=== PATIENT | male | born 1975 | race Caucasian/White ===

== ENCOUNTER 2018-01-15 09:43 | Emergency (ER) | payer OTHER ==
[2018-01-15 09:50] VITALS: RESP 18
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
[2018-01-15 10:57] LABS: Basophils # (A) 0.1 k/uL (0-0.2); Basophils % (A) 1 %; Eosinophils # (A) 0.2 k/uL (0-0.7); Eosinophils % (A) 2 %; HCT 49.7 % (39.0-53.0); HGB 16.3 gm/dL (13.0-17.5); Lymphocytes # (A) 2.2 k/uL (1.0-4.8); Lymphocytes % (A) 22 %; MCH 30.6 pg (25.0-35.0); MCHC 32.9 g/dL (31.0-37.0); Mean Platelet Volume 6.4; Monocytes # (A) 0.5 k/uL (0-1.0); Monocytes % (A) 4 %; Neutrophils # (A) 7.1 k/uL (1.3-7.7); Neutrophils % (A) 70 %; Platelet Count 424 k/uL (150-450); RBC 5.34 m/uL (4.30-5.90); WBC 10.2 k/uL (3.8-10.6)
[2018-01-15 11:07] LABS: ALT 25 U/L (21-72); AST 19 U/L (17-59); Albumin 4.7 g/dL (3.5-5.0); Alkaline Phosphatase 59 U/L (38-126); Anion Gap 10 mmol/L; Blood Urea Nitrogen 16 mg/dL (9-20); Calcium 10.1 mg/dL (8.4-10.2); Carbon Dioxide 24 mmol/L (22-30); Chloride 106 mmol/L (98-107); Glucose 93 mg/dL (74-99); Lithium 0.5 mmol/L; Magnesium 2.1 mg/dL (1.6-2.3); Potassium 5.5 mmol/L (3.5-5.1); Sodium 140 mmol/L (137-145)
--- NOTE | 2018-01-15 11:23 | CT ---
EXAMINATION TYPE: CT brain cspine wo con DATE OF EXAM: 01/15/2018 COMPARISON: NONE HISTORY: Fall injury with headache and neck pain. CT DLP: Routine 60 mGycm. Automated Exposure Control for Dose Reduction was Utilized. TECHNIQUE: CT scan of the head and cervical spine are performed without contrast. FINDINGS: There is no acute intracranial hemorrhage, mass effect, or midline shift identified. The ventricles and sulci are within normal limits in size. The globes are intact and the visualized sin uses are clear. The calvarium is intact. Cervical spine is visualized in its entirety from C1 through upper thoracic levels and demonstrates s atisfactory alignment without evidence of acute fracture or dislocation. Prevertebral soft tissue ap pears within normal limits. The C1-C2 articulation is within normal limits on the coronal images. T here is mild to moderate disc space narrowing C6-C7 level otherwise vertebral body heights and disc s pace heights are fairly well-maintained. Small posterior spur disc complex is seen at this level on s agittal images. Thyroid gland is felt within normal limits. There is advanced emphysematous change in the visualized lung apices. IMPRESSION: 1. There is no acute fracture or dislocation evident in the cervical spine. Incidental advanced emphy sematous change in visualized lung apices. 2. No acute intracranial hemorrhage, mass effect, or midline shift is seen.
[2018-01-15 12:42] VITALS: BP 129/80; PULSE 79; TEMP 98
== END 2018-01-15 12:35 | disposition home or self-care (01) ==
LOC: EC 09:43
DX: M54.12 Radiculopathy, cervical region (principal); H53.8 Other visual disturbances; F31.9 Bipolar disorder, unspecified; F41.9 Anxiety disorder, unspecified; F17.200 Nicotine dependence, unspecified, uncomplicated; Z79.899 Other long term (current) drug therapy
CPT/HCPCS: 36415; 70450; 72125; 80053; 80178; 83735; 85025; 99284

== ENCOUNTER → 2018-01-21 | Outpatient (CLI) | payer OTHER ==
--- NOTE | 2018-01-21 16:23 | US ---
EXAMINATION TYPE: US kidneys/renal and bladder DATE OF EXAM: 01/21/2018 COMPARISON: NONE CLINICAL HISTORY: 42-year-old male R31.9 Hematuria. TECHNIQUE: Multiple sonographic images of the kidneys and bladder are obtained. FINDINGS: EXAM MEASUREMENTS: Right Kidney: 9.5 x 4.3 x 5.1 cm Left Kidney: 11.0 x 5.3 x 4.8 cm Right Kidney: Central cyst measuring 1.7 x 1.8 x 1.8cm contains a thin internal septation. No hydrone phrosis. Left Kidney: No hydronephrosis. Bladder: Mild circumferential wall thickening at 5 mm. IMPRESSION: 1. No hydronephrosis. 2. Minimally complex 1.8 cm cyst in the central right kidney. Suspect a benign, Bosniak category [address] A 6-12 month precautionary follow-up ultrasound can be performed. 3. Mild circumferential bladder wall thickening could represent chronic bladder wall hypertrophy. Cor relate to exclude cystitis.
--- NOTE | 2018-01-21 16:30 | US ---
EXAMINATION TYPE: US thyroid st tissue head/neck DATE OF EXAM: 01/21/2018 COMPARISON: NONE CLINICAL HISTORY: 42-year-old male e21.3 parathyroid disease. TECHNIQUE: Multiple sonographic images of the thyroid gland are obtained. FINDINGS: GLAND SIZE: Right Lobe: 5.3 x 1.3 x 2.3 cm Overall Parenchyma: heterogenous Left Lobe: 6.0 x 1.3 x 1.3 cm Overall Parenchyma: heterogeneous Isthmus Thickness: 0.2 cm NODULES RIGHT: # of nodules measured on right: 0 LEFT: # of nodules measured on left: 0 ISTHMUS: # of nodules measured in the isthmus: 0 Bilateral neck scanned, no evidence of lymphadenopathy. No evident mass in parathyroid area. IMPRESSION: 1. Mild thyromegaly with measurements as above. 2. No discrete nodule or parathyroid mass identified.
--- NOTE | 2018-01-24 22:00 | MR ---
EXAMINATION TYPE: MR cervical spine wo con DATE OF EXAM: 01/21/2018 COMPARISON: None HISTORY: 42-year-old male, pain and numbness in right arm. TECHNIQUE: Multiplanar, multisequence images of the cervical spine were acquired. FINDINGS: The craniocervical junction abnormality, predental space widening, or prevertebral soft tissue swelli ng. Vertebral mild intervertebral disc desiccation throughout. There is also mild disc interspace narrowi ng at C6-C7. Mild disc bulging is present at both C5-C6 and C6-C7 and additional ligamentum flavum thickening is p resent at C6-C7. Scattered mild facet arthropathy. Alignment is maintained. No prevertebral or paravertebral soft tissue abnormality seen. A focal lesion within the C5 vertebral body shows stippled appearance on axial series most compatible with a hemangioma. No suspicious bone marrow replacement. At C2-C3, no spinal canal or foraminal stenosis. There is mild facet arthropathy. At C3-C4, mild facet arthropathy without canal or foraminal stenosis. At C4-C5, there is facet arthropathy and minimal bulging disc without canal or foraminal stenosis. At C5-C6, minimal posterior bulging disc with facet arthropathy. No significant canal or foraminal st enosis. At C6-C7, broad-based discussed by complex with uncovertebral joint degenerative change on the left a nd mild facet arthropathy. Changes mildly narrow the left-sided neuroforamen. Additional ligamentum f lavum thickening. There is mild ventral and dorsal impression on the thecal sac without significant c anal stenosis. At C7-T1, no spinal canal or foraminal stenosis. IMPRESSION: Mild spondylotic change, particularly at the C6-C7. Changes result in mild narrowing of the left-side d neuroforamen at this level and minimal impression on to both the dorsal and ventral thecal sac but no significant spinal canal stenosis.
== END | disposition home or self-care (01) ==
LOC: RADMRIMAIN 10:16
PROVIDERS: ATTEND Family Medicine
DX: M99.71 Connective tissue and disc stenosis of intervertebral foramina of cervical region (principal); M47.22 Other spondylosis with radiculopathy, cervical region; E01.0 Iodine-deficiency related diffuse (endemic) goiter; N32.89 Other specified disorders of bladder; N28.1 Cyst of kidney, acquired; E21.3 Hyperparathyroidism, unspecified
CPT/HCPCS: 72141; 76536; 76770

== ENCOUNTER 2018-04-12 12:49 | Emergency (ER) | payer OTHER ==
[2018-04-12 12:59] VITALS: RESP 16
--- NOTE | 2018-04-12 14:06 | XR ---
EXAMINATION TYPE: XR hand complete LT DATE OF EXAM: 04/12/2018 CLINICAL HISTORY: Pain and swelling after fall injury today. TECHNIQUE: Frontal, lateral and oblique images of the left hand are obtained. COMPARISON: None. FINDINGS: There is no acute fracture/dislocation evident in the left hand. The joint spaces in the l eft hand appear within normal limits. Metallic ring overlies midshaft fourth proximal phalanx. The o verlying soft tissue appears unremarkable. IMPRESSION: There is no acute fracture or dislocation in the left hand.
--- NOTE | 2018-04-12 14:07 | XR ---
EXAMINATION TYPE: XR knee complete LT DATE OF EXAM: 04/12/2018 COMPARISON: NONE HISTORY: 43-year-old male with pain and swelling after fall today TECHNIQUE: 3 views FINDINGS: No acute fracture, subluxation, or dislocation. Extensor mechanism appears intact. No significant taty nt effusion. Mild anterior soft tissue swelling. IMPRESSION: No acute osseous abnormality seen.
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
[2018-04-12] MEDS ORDERED: ACETAMINOPHEN TAB 325 MG TAB PO STA (14:48)
[2018-04-12 15:14] VITALS: BP 116/80; PULSE 80; TEMP 98.2
== END 2018-04-12 15:13 | disposition home or self-care (01) ==
LOC: EC 12:49
DX: M79.642 Pain in left hand (principal); M25.562 Pain in left knee; F31.9 Bipolar disorder, unspecified; F41.9 Anxiety disorder, unspecified; F17.200 Nicotine dependence, unspecified, uncomplicated; Z79.899 Other long term (current) drug therapy; W01.0XXA Fall on same level from slipping, tripping and stumbling without subsequent striking against object, initial encounter; W22.8XXA Striking against or struck by other objects, initial encounter
CPT/HCPCS: 99283

== ENCOUNTER 2018-08-26 18:43 | Emergency (ER) | payer OTHER ==
[2018-08-26 19:16] VITALS: RESP 16; TEMP 98.3
[2018-08-26] MEDS ORDERED: KETOROLAC 30 MG/ML 1 ML VIAL IM STA (19:29)
[2018-08-26] MEDS ORDERED: MORPHINE SULFATE 4 MG/ML SYRINGE IM STA (19:29)
--- NOTE | 2018-08-26 19:36 | ED ---
Chest Pain HPI - General Chief Complaint: Chest Pain Stated Complaint: Chest pain Time Seen by Provider: 08/26/18 19:14 Source: patient, RN notes reviewed, old records reviewed Mode of arrival: ambulatory Limitations: no limitations - History of Present Illness Initial Comments: Patient is a 43-year-old male who presents emergency Department stay for ev aluation for right sided musculoskeletal chest pain. He reports symptoms started after he had an injury on Thursday. He was seen at [facility] that time. He was started on Robaxin and naproxen With sinus a muscle strain. He reports that history of pneumothorax the past. He states he doesn't feel extremely short of breath. He denies any lightheaded or dizziness. Patient reports pain is worse with certain movements. Patient reports the injury was caused after he was trying to lift something over a 5 story railing. Patient reports that he simply pinned between the railing while holding onto heavy object. Trying to throw over. Patient states that he has pain in the right axilla and ribs. - Related Data Home Medications Medication Instructions Recorded Confirmed Methocarbamol [Robaxin] 1,000 mg PO TID PRN 08/26/18 08/26/18 Naproxen 500 mg PO BID 08/26/18 08/26/18 Previous Rx's Medication Instructions Recorded Lidocaine 5% Patch [Lidoderm 5% 1 patch TOPICAL DAILY #10 patch 08/26/18 Patch] methylPREDNISolone Dose Pack 4 mg PO DIRECTED #21 package 08/26/18 [Medrol Dose Pack] Allergies Allergy/AdvReac Type Severity Reaction Status Date / Time No Known Allergies Allergy Verified 08/26/18 19:48 Review of Systems ROS Statement: Those systems with pertinent positive or pertinent negative responses have been documented in the HPI. ROS Other: All systems not noted in ROS Statement are negative. Past Medical History Past Medical History: Pneumonia History of Any Multi-Drug Resistant Organisms: None Reported Past Surgical History: No Surgical Hx Reported Past Psychological History: Anxiety, Bipolar, Depression Smoking Status: Current every day smoker Past Alcohol Use History: Rare Past Drug Use History: None Reported General Exam - General Exam Comments Initial Comments: 43-year-old male. Alert and oriented. No distress. Limitations: no limitations General appearance: alert, in no apparent distress Head exam: Present: atraumatic, normocephalic, normal inspection Eye exam: Present: normal appearance, PERRL, EOMI. Absent: scleral icterus, conjunctival injection, periorbital swelling ENT exam: Present: normal exam, mucous membranes moist Neck exam: Present: normal inspection. Absent: tenderness, meningismus, lymphadenopathy Respiratory exam: Present: normal lung sounds bilaterally, other (Chest tenderness over the right-sided chest wall.). Absent: respiratory distress, wheezes, rales, rhonchi, stridor Cardiovascular Exam: Present: regular rate, normal rhythm, normal heart sounds. Absent: systolic murmur, diastolic murmur, rubs, gallop, clicks GI/Abdominal exam: Present: soft, normal bowel sounds. Absent: distended, tenderness, guarding, rebound, rigid Extremities exam: Present: normal inspection, full ROM, normal capillary refill. Absent: tenderness, pedal edema, joint swelling, calf tenderness Back exam: Present: normal inspection Neurological exam: Present: alert, oriented X3, CN II-XII intact Psychiatric exam: Present: normal affect, normal mood Skin exam: Present: warm, dry, intact, normal color. Absent: rash Course Vital Signs 08/26/18 19:13 Temperature 98.3 F Pulse Rate 71 Respiratory 16 Rate Blood Pressure 131/51 O2 Sat by Pulse 98 Oximetry [facility] Patient is a 43-year-old male presents for his pharmacy for evaluation for right-sided chest wall pain. Symptoms started after he had an injury on Thursday. Was seen at [facility] and sent here for further evaluation. Patient's pain is extremely muscular skeletal. No dizziness ahead shortness of breath. Does report as well as palpation. X-rays repeated today should no acute fracture. No pneumothorax. There is no significant bruising on his exam. I discussed discharging the Patient with lidocaine patches and continuing muscle relaxers and anti-inflammatory medicine. All questions answered and return parameters were discussed. Disposition Clinical Impression: Chest wall contusion Disposition: HOME SELF-CARE Condition: Good Instructions (If sedation given, give patient instructions): Costochondritis (ED) Additional Instructions: Patient advised to follow-up with her primary care physician. Return to emergency department if any alarming signs or symptoms occur. Prescriptions: Lidocaine 5% Patch [Lidoderm 5% Patch] 1 patch TOPICAL DAILY #10 patch methylPREDNISolone Dose Pack [Medrol Dose Pack] 4 mg PO DIRECTED #21 package Is patient prescribed a controlled substance at d/c from ED?: No Referrals: None,Stated [REFERRING] - 1-2 days Danii Lassiter MD [Primary Care Provider] - 1-2 days Time of Disposition: 21:38
--- NOTE | 2018-08-26 19:59 | XR ---
EXAMINATION TYPE: XR chest 2V DATE OF EXAM: 08/26/2018 COMPARISON: NONE HISTORY: Short of breath TECHNIQUE: Frontal and lateral views of the chest are obtained. FINDINGS: Heart and mediastinum are normal. There are some emphysematous changes in the upper lobes. There are no hilar masses. Bony thorax is intact. There is small calcified granuloma right lower lob e. IMPRESSION: Emphysema. No acute lung disease. Normal heart.
--- NOTE | 2018-08-26 21:11 | XR ---
EXAMINATION TYPE: XR ribs RT DATE OF EXAM: 08/26/2018 COMPARISON: NONE HISTORY: Right rib pain TECHNIQUE: 4 views FINDINGS: I see no pleural effusion or pneumothorax. There are emphysematous changes in the right upp er lobe. I see no rib fracture. IMPRESSION: No rib fracture seen.
[2018-08-26] MEDS ORDERED: LIDOCAINE 5% PATCH TOPICAL SCH (21:30)
[2018-08-26] MEDS ORDERED: ACET/COD 300 MG/30 MG STARTER PACK 6 TAB BTL PO STA (21:39)
[2018-08-26 22:07] VITALS: BP 121/69; PULSE 86
== END 2018-08-26 22:05 | disposition home or self-care (01) ==
LOC: EC 18:43
DX: S20.211A Contusion of right front wall of thorax, initial encounter (principal); J43.9 Emphysema, unspecified; F17.200 Nicotine dependence, unspecified, uncomplicated; Z79.1 Long term (current) use of non-steroidal anti-inflammatories (NSAID); X58.XXXA Exposure to other specified factors, initial encounter
CPT/HCPCS: 71100; 71046; 99285; 96372 ×2; J2270; J1885

== ENCOUNTER 2018-11-29 23:02 | Emergency (ER) | payer OTHER ==
[2018-11-29] MEDS ORDERED: SODIUM CHLORIDE 0.9% 500 ML 500 ML IV STA (23:51)
[2018-11-29] MEDS ORDERED: KETOROLAC 30 MG/ML 1 ML VIAL IVP STA (23:52)
[2018-11-30 00:12] LABS: Basophils # (A) 0.1 k/uL (0-0.2); Basophils % (A) 1 %; Eosinophils # (A) 0.2 k/uL (0-0.7); Eosinophils % (A) 2 %; HCT 40.6 % (39.0-53.0); HGB 13.7 gm/dL (13.0-17.5); Lymphocytes # (A) 3.5 k/uL (1.0-4.8); Lymphocytes % (A) 46 %; MCH 30.8 pg (25.0-35.0); MCHC 33.7 g/dL (31.0-37.0); MCV 91.5 fL (80.0-100.0); Mean Platelet Volume 6.4; Monocytes # (A) 0.5 k/uL (0-1.0); Monocytes % (A) 7 %; Neutrophils # (A) 3.1 k/uL (1.3-7.7); Neutrophils % (A) 42 %; Platelet Count 349 k/uL (150-450); RBC 4.44 m/uL (4.30-5.90); RDW 12.7 % (11.5-15.5); WBC 7.5 k/uL (3.8-10.6)
[2018-11-30 00:26] LABS: ALT 10 U/L (21-72); AST 18 U/L (17-59); African American GFR (CKD) >90 (>60 ml/min/1.73 sqM); Alkaline Phosphatase 51 U/L (38-126); Amylase 57 U/L (30-110); Anion Gap 9 mmol/L; Blood Urea Nitrogen 10 mg/dL (9-20); Calcium 9.6 mg/dL (8.4-10.2); Carbon Dioxide 24 mmol/L (22-30); Chloride 105 mmol/L (98-107); Glucose 93 mg/dL (74-99); Sodium 138 mmol/L (137-145); Total Bilirubin 0.7 mg/dL (0.2-1.3); Total Protein 6.7 g/dL (6.3-8.2)
[2018-11-30 00:33] LABS: Appearance,Urine Clear (Clear); Bilirubin,Urine Negative (Negative); Blood,Urine Small (Negative); Color,Urine Yellow; Glucose,Urine (UA) Negative (Negative); Ketones,Urine Negative (Negative); Leukocyte Esterase,Urine Negative (Negative); Mucus,Urine Moderate /hpf; Nitrite,Urine Negative (Negative); PH, Urine 5.5 (5.0-8.0); Protein,Urine Negative (Negative); RBC,Urine 3 /hpf (0-5); Specific Gravity,Urine 1.013 (1.001-1.035); Urobilinogen,Urine <2.0 mg/dL (<2.0); WBC,Urine 1 /hpf (0-5)
--- NOTE | 2018-11-30 01:01 | CT ---
EXAM: CT Abdomen and Pelvis Without Intravenous Contrast CLINICAL HISTORY: Stone TECHNIQUE: Axial computed tomography images of the abdomen and pelvis without intravenous contrast. CTDI is 0.085, 0.085, 5.6 mGy and DLP is 322.1 mGy- cm. This CT exam was performed using one or more of the following dose reduction techniques: automated exposure control, adjustment of the mA and/or kV according to patient size, and/or use of iterative reconstruction technique. COMPARISON: No relevant prior studies available. FINDINGS: Lung bases: Centrilobular emphysema with dependent atelectasis. Heart: Trace pericardial effusion. ABDOMEN: Liver: Unremarkable. Gallbladder and bile ducts: Unremarkable. Pancreas: Unremarkable. Spleen: Unremarkable. Adrenals: Unremarkable. Kidneys and ureters: Probable cyst within the right kidney. Stomach and bowel: Unremarkable. PELVIS: Appendix: Appendix is unremarkable. Bladder: Unremarkable. Reproductive: Unremarkable as visualized. ABDOMEN and PELVIS: Intraperitoneal space: Unremarkable. Bones/joints: No acute fracture. No dislocation. Soft tissues: Unremarkable. Vasculature: Unremarkable. No abdominal aortic aneurysm. Lymph nodes: Unremarkable. IMPRESSION: No acute findings.
--- NOTE | 2018-11-30 01:14 | ED ---
Abdominal Pain HPI - General Chief Complaint: Abdominal Pain Stated Complaint: Kidney stones Time Seen by Provider: 11/29/18 23:51 Source: patient Mode of arrival: ambulatory Limitations: no limitations - History of Present Illness Initial Comments: 43-year-old male history of nephrolithiasis presenting today for chief complaint of left-sided flank pain that radiates towards the abdomen. Patient states that he believes he has a kidney stone. He states he has sharp pain that comes and goes April 15 had a stone in the past. Patient states his urine has been a little red tinged. He states he also has had some mild dysuria. Patient denies penile discharge. Denies any fever or chills night sweats or flu like symptoms. Patient denies chest pain shortness of breath. Patient describes the pain as sharp shooting when it occurs. Fluctuating in intensity. Remaining review of systems negative upon arrival patient appears well no signs of acute distress. - Related Data Home Medications Medication Instructions Recorded Confirmed Methocarbamol [Robaxin] 1,000 mg PO TID PRN 08/26/18 11/29/18 Diazepam [Valium] 5 mg PO BID 11/29/18 11/29/18 Allergies Allergy/AdvReac Type Severity Reaction Status Date / Time No Known Allergies Allergy Verified 11/29/18 23:45 Review of Systems ROS Statement: Those systems with pertinent positive or pertinent negative responses have been documented in the HPI. ROS Other: All systems not noted in ROS Statement are negative. Past Medical History Past Medical History: Pneumonia Additional Past Medical History / Comment(s): kidney stones History of Any Multi-Drug Resistant Organisms: None Reported Past Surgical History: Orthopedic Surgery Additional Past Surgical History / Comment(s): R thumb Past Psychological History: Anxiety, Bipolar, Depression Smoking Status: Current every day smoker Past Alcohol Use History: Rare Past Drug Use History: None Reported General Exam - General Exam Comments Initial Comments: General: The patient is awake and alert, in no distress, and does not appear acutely ill. Eye: Pupils are equal, round and reactive to light, extra-ocular movements are intact. No nystagmus. There is normal conjunctiva bilaterally. No signs of icterus. Ears, nose, mouth and throat: There are moist mucous membranes and no oral lesions. Neck: The neck is supple, there is no tenderness or JVD. Cardiovascular: There is a regular rate and rhythm. No murmur, rub or gallop is appreciated. Respiratory: Lungs are clear to auscultation, respirations are non-labored, breath sounds are equal. No wheezes, stridor, rales, or rhonchi. Gastrointestinal: Soft, non-distended, non-tender abdomen without masses or organomegaly noted. There is no rebound or guarding present. No CVA tenderness. Bowel sounds are unremarkable. Musculoskeletal: Normal ROM, no tenderness. Strength 5/5. Sensation intact. Pulses equal bilaterally 2+. Neurological: A&O x 3. CN II-XII intact, There are no obvious motor or sensory deficits. Coordination appears grossly intact. Speech is normal. Skin: Skin is warm and dry and no rashes or lesions are noted. Psychiatric: Cooperative, appropriate mood & affect, normal judgment. Limitations: no limitations Course Vital Signs 11/29/18 11/29/18 11/30/18 23:21 23:56 01:28 Temperature 97.4 F L 97.6 F Pulse Rate 81 84 66 Respiratory 20 18 16 Rate Blood Pressure 118/81 111/72 114/66 O2 Sat by Pulse 97 95 99 Oximetry Medical Decision Making - Medical Decision Making 43-year-old male presenting for left flank pain radiating towards the abdomen. Patient appears well and nontoxic. Vital signs within acceptable limits. Patient is afebrile. Abdominal exam benign. Patient's history of nephro lithiasis had had an episode of dysuria. There is hematuria noted on urinalysis. CT without contrast of the abdomen and pelvis revealed no evidence of stone. There is possibility the stone is very passed. Patient has no current symptoms after toradol. Patient appears well besides acute distress. Laboratory studies are unremarkable. At this time feel patient is stable for discharge with outpatient primary care follow-up. Return parameters were discussed at length patient states he lives [place] the [place] from the hospital and will return if symptoms change or worsen. Patient was discharged appearing well - Lab Data Result diagrams: 11/29/18 23:45 11/29/18 23:45 Lab Results 11/29/18 11/29/18 11/29/18 Range/Units 23:45 23:45 23:45 WBC 7.5 (3.8-10.6) k/uL RBC 4.44 (4.30-5.90) m/uL Hgb 13.7 (13.0-17.5) gm/dL Hct 40.6 (39.0-53.0) % MCV 91.5 (80.0-100.0) fL MCH 30.8 (25.0-35.0) pg MCHC 33.7 (31.0-37.0) g/dL RDW 12.7 (11.5-15.5) % Plt Count 349 (150-450) k/uL Neutrophils % 42 % Lymphocytes % 46 % Monocytes % 7 % Eosinophils % 2 % Basophils % 1 % Neutrophils # 3.1 (1.3-7.7) k/uL Lymphocytes # 3.5 (1.0-4.8) k/uL Monocytes # 0.5 (0-1.0) k/uL Eosinophils # 0.2 (0-0.7) k/uL Basophils # 0.1 (0-0.2) k/uL Sodium 138 (137-145) mmol/L Potassium 4.0 (3.5-5.1) mmol/L Chloride 105 (98-107) mmol/L Carbon Dioxide 24 (22-30) mmol/L Anion Gap 9 mmol/L BUN 10 (9-20) mg/dL Creatinine 1.08 (0.66-1.25) mg/dL Est GFR (CKD-EPI)AfAm >90 (>60 ml/min/1.73 sqM) Est GFR (CKD-EPI)NonAf 83 (>60 ml/min/1.73 sqM) Glucose 93 (74-99) mg/dL Calcium 9.6 (8.4-10.2) mg/dL Total Bilirubin 0.7 (0.2-1.3) mg/dL AST 18 (17-59) U/L ALT 10 L (21-72) U/L Alkaline Phosphatase 51 (38-126) U/L Total Protein 6.7 (6.3-8.2) g/dL Albumin 4.0 (3.5-5.0) g/dL Amylase 57 (30-110) U/L Lipase 109 (23-300) U/L Urine Color Yellow Urine Appearance Clear (Clear) Urine pH 5.5 (5.0-8.0) Ur Specific [place] 1.013 (1.001-1.035) Urine Protein Negative (Negative) Urine Glucose (UA) Negative (Negative) Urine Ketones Negative (Negative) Urine Blood Small H (Negative) Urine Nitrite Negative (Negative) Urine Bilirubin Negative (Negative) Urine Urobilinogen <2.0 (<2.0) mg/dL Ur Leukocyte Esterase Negative (Negative) Urine RBC 3 (0-5) /hpf Urine WBC 1 (0-5) /hpf Urine Mucus Moderate H (None) /hpf Disposition Clinical Impression: Abdominal pain, Hematuria Disposition: HOME SELF-CARE Condition: Good Instructions (If sedation given, give patient instructions): Abdominal Pain (ED) Additional Instructions: Please use medication as discussed. Please follow-up with family doctor in the next 2 days Please return to emergency room if the symptoms increase or worsen or for any other concerns. Is patient prescribed a controlled substance at d/c from ED?: No Referrals: Danii Lassiter MD [Primary Care Provider] - 1-2 days Time of Disposition: 01:14
[2018-11-30 01:30] VITALS: BP 114/66; PULSE 66; RESP 16; TEMP 97.6
== END 2018-11-30 01:32 | disposition home or self-care (01) ==
LOC: EC 23:02
DX: R10.9 Unspecified abdominal pain (principal); R31.9 Hematuria, unspecified; Z87.442 Personal history of urinary calculi; R30.0 Dysuria; F41.9 Anxiety disorder, unspecified; F17.200 Nicotine dependence, unspecified, uncomplicated; Z79.899 Other long term (current) drug therapy
CPT/HCPCS: 36415; 80053; 82150; 83690; 85025; 81001; 74176; 99284; 96374; 96361 ×2; J1885

== ENCOUNTER 2018-11-30 22:00 | Emergency (ER) | payer OTHER ==
[2018-11-30 22:03] VITALS: BP 106/68; PULSE 64; RESP 18; TEMP 97.8
[2018-11-30] MEDS ORDERED: SODIUM CHLORIDE 0.9% 1,000 ML IV STA (23:01)
[2018-11-30] MEDS ORDERED: KETOROLAC 30 MG/ML 1 ML VIAL IVP STA (23:01)
--- NOTE | 2018-11-30 23:04 | ED ---
General Adult HPI - General Chief complaint: Recheck/Abnormal Lab/Rx Stated complaint: kidney stones Time Seen by Provider: 11/30/18 22:07 Source: patient, RN notes reviewed Mode of arrival: ambulatory Limitations: no limitations - History of Present Illness Initial comments: 43-year-old male with a past medical history of kidney stones, pneumonia prese nts to the emergency department for left flank and abdominal pain. Patient states this started yesterday. States he was seen in the emergency department and diagnosed with likely passed kidney stone. States that he did feel better after discharge but when he went home he started having this pain again. States it was painful at work. Patient denies any alleviating or aggravating factors. Denies any fevers or chills. States it feels like a kidney stone.Patient has no other complaints at this time including shortness of breath, chest pain, nausea or vomiting, headache, or visual changes. - Related Data Home Medications Medication Instructions Recorded Confirmed Methocarbamol [Robaxin] 1,000 mg PO TID PRN 08/26/18 11/30/18 Diazepam [Valium] 5 mg PO BID 11/29/18 11/30/18 Allergies Allergy/AdvReac Type Severity Reaction Status Date / Time No Known Allergies Allergy Verified 11/30/18 22:17 Review of Systems ROS Statement: Those systems with pertinent positive or pertinent negative responses have been documented in the HPI. ROS Other: All systems not noted in ROS Statement are negative. Past Medical History Past Medical History: Pneumonia Additional Past Medical History / Comment(s): kidney stones History of Any Multi-Drug Resistant Organisms: None Reported Past Surgical History: Orthopedic Surgery Additional Past Surgical History / Comment(s): R thumb Past Psychological History: Anxiety, Bipolar, Depression Smoking Status: Current every day smoker Past Alcohol Use History: Rare Past Drug Use History: None Reported General Exam Limitations: no limitations General appearance: alert, in no apparent distress Head exam: Present: atraumatic, normocephalic, normal inspection Eye exam: Present: normal appearance, PERRL, EOMI. Absent: scleral icterus, conjunctival injection, periorbital swelling ENT exam: Present: normal exam, mucous membranes moist Neck exam: Present: normal inspection, full ROM. Absent: tenderness, meningi smus, lymphadenopathy Respiratory exam: Present: normal lung sounds bilaterally. Absent: respiratory distress, wheezes, rales, rhonchi, stridor Cardiovascular Exam: Present: regular rate, normal rhythm, normal heart sounds. Absent: systolic murmur, diastolic murmur, rubs, gallop, clicks Back exam: Present: CVA tenderness (L). Absent: CVA tenderness (R) Course Vital Signs 11/30/18 22:01 Temperature 97.8 F Pulse Rate 64 Respiratory 18 Rate Blood Pressure 106/68 O2 Sat by Pulse 100 Oximetry Medical Decision Making - Medical Decision Making 43-year-old male presents to the emergency department for left flank and abdominal pain 2 days. Patient was seen here yesterday for similar complaint. States he felt better and worsened again. Vitals are stable. Patient does have left CVA tenderness of mild left-sided abdominal tenderness. CBC and CMP unremarkable. Patient does have trace blood noted in the urine. CT did not show evidence of kidney stone but it was thought that he likely passed a kidney stone. Patient was given Toradol and morphine today with significant improvement in symptoms. He is tolerating by mouth challenge. This is likely renal colic. At this time patient will follow up outpatient and will be given urology referral and pain medication. He will return here if he has any worsening symptoms. - Lab Data Result diagrams: 11/30/18 23:05 11/30/18 23:05 Lab Results 11/30/18 11/30/18 11/30/18 Range/Units 23:05 23:05 23:05 WBC 7.3 (3.8-10.6) k/uL RBC 4.67 (4.30-5.90) m/uL Hgb 14.6 (13.0-17.5) gm/dL Hct 43.3 (39.0-53.0) % MCV 92.7 (80.0-100.0) fL MCH 31.2 (25.0-35.0) pg MCHC 33.6 (31.0-37.0) g/dL RDW 13.9 (11.5-15.5) % Plt Count 368 (150-450) k/uL Neutrophils % 41 % Lymphocytes % 48 % Monocytes % 6 % Eosinophils % 2 % Basophils % 1 % Neutrophils # 3.0 (1.3-7.7) k/uL Lymphocytes # 3.5 (1.0-4.8) k/uL Monocytes # 0.4 (0-1.0) k/uL Eosinophils # 0.1 (0-0.7) k/uL Basophils # 0.1 (0-0.2) k/uL Sodium 141 (137-145) mmol/L Potassium 3.8 (3.5-5.1) mmol/L Chloride 107 (98-107) mmol/L Carbon Dioxide 25 (22-30) mmol/L Anion Gap 9 mmol/L BUN 13 (9-20) mg/dL Creatinine 0.88 (0.66-1.25) mg/dL Est GFR (CKD-EPI)AfAm >90 (>60 ml/min/1.73 sqM) Est GFR (CKD-EPI)NonAf >90 (>60 ml/min/1.73 sqM) Glucose 71 L (74-99) mg/dL Calcium 10.0 (8.4-10.2) mg/dL Total Bilirubin 0.9 (0.2-1.3) mg/dL AST 19 (17-59) U/L ALT 14 L (21-72) U/L Alkaline Phosphatase 62 (38-126) U/L Total Protein 7.1 (6.3-8.2) g/dL Albumin 4.3 (3.5-5.0) g/dL Amylase 58 (30-110) U/L Lipase 111 (23-300) U/L Urine Color Light Yellow Urine Appearance Clear (Clear) Urine pH 5.5 (5.0-8.0) Ur Specific [place] 1.006 (1.001-1.035) Urine Protein Negative (Negative) Urine Glucose (UA) Negative (Negative) Urine Ketones Negative (Negative) Urine Blood Trace H (Negative) Urine Nitrite Negative (Negative) Urine Bilirubin Negative (Negative) Urine Urobilinogen <2.0 (<2.0) mg/dL Ur Leukocyte Esterase Negative (Negative) Urine WBC <1 (0-5) /hpf Disposition Clinical Impression: Hematuria, Renal colic on left side Disposition: HOME SELF-CARE Condition: Good Instructions (If sedation given, give patient instructions): Renal Colic (ED), Hematuria (ED) Additional Instructions: Please follow up with primary care and urology in 1-2 days. Take pain medication as needed. Return to the emergency department if you have any worsening symptoms. Is patient prescribed a controlled substance at d/c from ED?: No Referrals: Danii Lassiter MD [Primary Care Provider] - 1-2 days Avel Porras MD [STAFF PHYSICIAN] - 1-2 days Time of Disposition: 00:21
[2018-11-30 23:18] LABS: Basophils # (A) 0.1 k/uL (0-0.2); Basophils % (A) 1 %; Eosinophils # (A) 0.1 k/uL (0-0.7); Eosinophils % (A) 2 %; HCT 43.3 % (39.0-53.0); HGB 14.6 gm/dL (13.0-17.5); Lymphocytes # (A) 3.5 k/uL (1.0-4.8); Lymphocytes % (A) 48 %; MCH 31.2 pg (25.0-35.0); MCHC 33.6 g/dL (31.0-37.0); MCV 92.7 fL (80.0-100.0); Mean Platelet Volume 6.8; Monocytes # (A) 0.4 k/uL (0-1.0); Monocytes % (A) 6 %; Neutrophils % (A) 41 %; Platelet Count 368 k/uL (150-450); RBC 4.67 m/uL (4.30-5.90); RDW 13.9 % (11.5-15.5); WBC 7.3 k/uL (3.8-10.6)
[2018-11-30 23:20] LABS: Appearance,Urine Clear (Clear); Bilirubin,Urine Negative (Negative); Blood,Urine Trace (Negative); Color,Urine Light Yellow; Glucose,Urine (UA) Negative (Negative); Ketones,Urine Negative (Negative); Leukocyte Esterase,Urine Negative (Negative); Nitrite,Urine Negative (Negative); PH, Urine 5.5 (5.0-8.0); Protein,Urine Negative (Negative); Specific Gravity,Urine 1.006 (1.001-1.035); Urobilinogen,Urine <2.0 mg/dL (<2.0); WBC,Urine <1 /hpf (0-5)
[2018-11-30 23:32] LABS: ALT 14 U/L (21-72); AST 19 U/L (17-59); African American GFR (CKD) >90 (>60 ml/min/1.73 sqM); Albumin 4.3 g/dL (3.5-5.0); Alkaline Phosphatase 62 U/L (38-126); Amylase 58 U/L (30-110); Anion Gap 9 mmol/L; Blood Urea Nitrogen 13 mg/dL (9-20); Carbon Dioxide 25 mmol/L (22-30); Chloride 107 mmol/L (98-107); Glucose 71 mg/dL (74-99); Potassium 3.8 mmol/L (3.5-5.1); Sodium 141 mmol/L (137-145); Total Bilirubin 0.9 mg/dL (0.2-1.3); Total Protein 7.1 g/dL (6.3-8.2)
[2018-11-30] MEDS ORDERED: MORPHINE SULFATE 4 MG/ML SYRINGE IVP STA (23:42)
[2018-12-01] MEDS ORDERED: ACET/COD 300 MG/30 MG STARTER PACK 6 TAB BTL PO STA (00:22)
== END 2018-12-01 00:28 | disposition home or self-care (01) ==
LOC: EC 22:00
DX: N23 Unspecified renal colic (principal); R31.9 Hematuria, unspecified; F17.200 Nicotine dependence, unspecified, uncomplicated; F41.9 Anxiety disorder, unspecified; Z79.899 Other long term (current) drug therapy; Z87.442 Personal history of urinary calculi
CPT/HCPCS: 36415; 80053; 82150; 83690; 85025; 81001; 99284; 96374; 96375; 96361; J2270; J1885

== ENCOUNTER → 2019-02-09 | Outpatient (CLI) | payer OTHER ==
--- NOTE | 2019-02-09 07:59 | MR ---
EXAMINATION TYPE: MR shoulder RT wo con DATE OF EXAM: 02/09/2019 COMPARISON: NONE HISTORY: Rt shoulder pain, loss of motion and strength TECHNIQUE: Multiplanar, multisequence imaging of the right shoulder is performed without contrast. FINDINGS: Rotator Cuff: Distal supraspinatus and infraspinatus tendons are intact. Subscapularis tendon is inta ct. Rotator cuff muscle bulk is preserved. Acromioclavicular Joint: Moderate narrowing. No significant spurring. Underlying fat plane maintained . Distal acromion morphology unremarkable. Glenohumeral Joint: Small to moderate size effusion. Mild narrowing. No significant spurring. Labrum: The labrum appears grossly intact given limitation of non-arthrogram study. Biceps Tendon: The long head of biceps is in normal location within bicipital groove. Bone marrow signal: No focal abnormal marrow signal is appreciated. Other: No additional significant abnormality is appreciated. IMPRESSION: No rotator cuff or labral tear is evident.
== END | disposition home or self-care (01) ==
LOC: RADMRIMAIN 06:08
PROVIDERS: ATTEND Family Medicine
DX: M25.511 Pain in right shoulder (principal); G89.29 Other chronic pain

== ENCOUNTER 2019-07-20 13:35 | Emergency (ER) | payer OTHER ==
--- NOTE | 2019-07-20 13:54 | ED ---
General Adult HPI - General Chief complaint: Shortness of Breath Stated complaint: collapsed lung Time Seen by Provider: 07/20/19 13:40 Source: patient, RN notes reviewed, old records reviewed Mode of arrival: ambulatory Limitations: no limitations - History of Present Illness Initial comments: This is a 44-year-old male who presents emergency Department with a past medical history significant for a pneumothorax. Patient states it was about 8-10 years ago. Patient states he continues to smoke. Patient states last 2 days he's been having some left-sided chest pain as well as some shortness of breath. Patient states he went to an urgent care and they told him he had a pneumothorax and they sent him in the emergency department. Patient denies any fever chills or cough per patient denies any abdominal pain. Patient denies any lightheadedness dizziness or near syncopal episode. Patient states it does hurt more when he takes deep breath. - Related Data Previous Rx's Medication Instructions Recorded Ibuprofen [Motrin] 600 mg PO Q6HR PRN #20 tab 07/20/19 Allergies Allergy/AdvReac Type Severity Reaction Status Date / Time No Known Allergies Allergy Verified 07/20/19 17:01 Review of Systems ROS Statement: Those systems with pertinent positive or pertinent negative responses have been documented in the HPI. ROS Other: All systems not noted in ROS Statement are negative. Past Medical History Past Medical History: Pneumonia Additional Past Medical History / Comment(s): kidney stones History of Any Multi-Drug Resistant Organisms: None Reported Past Surgical History: Orthopedic Surgery Additional Past Surgical History / Comment(s): R thumb Past Psychological History: Anxiety, Bipolar, Depression Smoking Status: Current every day smoker Past Alcohol Use History: Rare Past Drug Use History: None Reported General Exam - General Exam Comments Initial Comments: GENERAL: Patient is well-developed and well-nourished. Patient is nontoxic and well- hydrated and is in mild distress. ENT: Neck is soft and supple. No significant lymphadenopathy is noted. Oropharynx is clear. Moist mucous membranes. Neck has full range of motion without eliciting any pain. EYES: The sclera were anicteric and conjunctiva were pink and moist. Extraocular movements were intact and pupils were equal round and reactive to light. Eyelids were unremarkable. PULMONARY: Unlabored respirations. Good breath sounds bilaterally. No audible rales rhonchi or wheezing was noted. CARDIOVASCULAR: There is a regular rate and rhythm without any murmurs gallops or rubs. ABDOMEN: Soft and nontender with normal bowel sounds. SKIN: Skin is clear with no lesions or rashes and otherwise unremarkable. NEUROLOGIC: Patient is alert and oriented x3. Cranial nerves II through XII are grossly intact. Motor and sensory are also intact. Normal speech, volume and content. Symmetrical smile. MUSCULOSKELETAL: Normal extremities with adequate strength and full range of motion. LYMPHATICS: No significant lymphadenopathy is noted PSYCHIATRIC: Normal psychiatric evaluation. Limitations: no limitations Course Vital Signs 07/20/19 07/20/19 07/20/19 13:40 14:42 14:44 Temperature 98.0 F Pulse Rate 95 80 Respiratory 18 22 22 Rate Blood Pressure 126/83 111/70 O2 Sat by Pulse 98 99 Oximetry Medical Decision Making - Medical Decision Making EKG shows normal sinus rhythm at 70 bpm GA interval 130 QRS is 94 QT interval 356 QTC is 405. Patient's EKG shows no ST segment elevation or depression. Chest x-ray showed a possible pneumothorax. Computed tomography scan shows a large blood but no pneumothorax. I gave the patient Toradol emergency department he stated he was feeling better and it was only hurting when he was taking a deep breath and he says he may have strained it doing some heavy work. - Lab Data Result diagrams: 07/20/19 15:47 07/20/19 15:47 Lab Results 07/20/19 07/20/19 07/20/19 Range/Units 15:47 15:47 15:47 WBC 7.8 (3.8-10.6) k/uL RBC 4.57 (4.30-5.90) m/uL Hgb 14.0 (13.0-17.5) gm/dL Hct 41.7 (39.0-53.0) % MCV 91.3 (80.0-100.0) fL MCH 30.7 (25.0-35.0) pg MCHC 33.6 (31.0-37.0) g/dL RDW 13.1 (11.5-15.5) % Plt Count 393 (150-450) k/uL Neutrophils % 54 % Lymphocytes % 35 % Monocytes % 7 % Eosinophils % 1 % Basophils % 1 % Neutrophils # 4.2 (1.3-7.7) k/uL Lymphocytes # 2.7 (1.0-4.8) k/uL Monocytes # 0.5 (0-1.0) k/uL Eosinophils # 0.1 (0-0.7) k/uL Basophils # 0.1 (0-0.2) k/uL PT 9.6 (9.0-12.0) sec INR 0.9 (<1.2) APTT 24.2 (22.0-30.0) sec D-Dimer 0.28 (<0.60) mg/L FEU Sodium 139 (137-145) mmol/L Potassium 4.2 (3.5-5.1) mmol/L Chloride 108 H (98-107) mmol/L Carbon Dioxide 25 (22-30) mmol/L Anion Gap 6 mmol/L BUN 14 (9-20) mg/dL Creatinine 0.61 L (0.66-1.25) mg/dL Est GFR (CKD-EPI)AfAm >90 (>60 ml/min/1.73 sqM) Est GFR (CKD-EPI)NonAf >90 (>60 ml/min/1.73 sqM) Glucose 95 (74-99) mg/dL Calcium 9.0 (8.4-10.2) mg/dL Magnesium 2.2 (1.6-2.3) mg/dL Total Bilirubin 0.4 (0.2-1.3) mg/dL AST 23 (17-59) U/L ALT 29 (4-49) U/L Alkaline Phosphatase 56 (38-126) U/L Troponin I (0.000-0.034) ng/mL Total Protein 6.7 (6.3-8.2) g/dL Albumin 4.1 (3.5-5.0) g/dL 07/20/19 Range/Units 15:47 WBC (3.8-10.6) k/uL RBC (4.30-5.90) m/uL Hgb (13.0-17.5) gm/dL Hct (39.0-53.0) % MCV (80.0-100.0) fL MCH (25.0-35.0) pg MCHC (31.0-37.0) g/dL RDW (11.5-15.5) % Plt Count (150-450) k/uL Neutrophils % % Lymphocytes % % Monocytes % % Eosinophils % % Basophils % % Neutrophils # (1.3-7.7) k/uL Lymphocytes # (1.0-4.8) k/uL Monocytes # (0-1.0) k/uL Eosinophils # (0-0.7) k/uL Basophils # (0-0.2) k/uL PT (9.0-12.0) sec INR (<1.2) APTT (22.0-30.0) sec D-Dimer (<0.60) mg/L FEU Sodium (137-145) mmol/L Potassium (3.5-5.1) mmol/L Chloride (98-107) mmol/L Carbon Dioxide (22-30) mmol/L Anion Gap mmol/L BUN (9-20) mg/dL Creatinine (0.66-1.25) mg/dL Est GFR (CKD-EPI)AfAm (>60 ml/min/1.73 sqM) Est GFR (CKD-EPI)NonAf (>60 ml/min/1.73 sqM) Glucose (74-99) mg/dL Calcium (8.4-10.2) mg/dL Magnesium (1.6-2.3) mg/dL Total Bilirubin (0.2-1.3) mg/dL AST (17-59) U/L ALT (4-49) U/L Alkaline Phosphatase (38-126) U/L Troponin I <0.012 (0.000-0.034) ng/mL Total Protein (6.3-8.2) g/dL Albumin (3.5-5.0) g/dL Disposition Clinical Impression: Pleurisy Disposition: HOME SELF-CARE Instructions (If sedation given, give patient instructions): Pleurisy (ED) Prescriptions: Ibuprofen [Motrin] 600 mg PO Q6HR PRN #20 tab PRN Reason: For pain Is patient prescribed a controlled substance at d/c from ED?: No Referrals: Danii Lassiter MD [Primary Care Provider] - 1-2 days Time of Disposition: 16:55
--- NOTE | 2019-07-20 14:09 | XR ---
EXAMINATION TYPE: XR chest 2V DATE OF EXAM: 07/20/2019 COMPARISON: 08/26/2018 HISTORY: Left-sided chest pain, history of pneumothorax. TECHNIQUE: Frontal and lateral views of the chest are obtained. FINDINGS: Severe emphysematous changes are seen in the lung apices. Linear opacity inferior to the t hird left rib concerning for a trace left apical pneumothorax. No new focal consolidation, pleural ef fusion or pulmonary vascular congestion. No current mediastinal shift. No acute osseous pathology. Mi ld degenerative change of the spine. IMPRESSION: Suspected trace left apical pneumothorax with severe underlying bullous emphysematous ch yesica. Finding could be confirmed with inspiratory and expiratory chest x-ray or chest CT. No mediasti nal shift.
--- NOTE | 2019-07-20 15:02 | CT ---
EXAMINATION TYPE: CT chest wo con DATE OF EXAM: 07/20/2019 COMPARISON: Radiograph same day HISTORY: 44-year-old male Sudden onset Left sided chest pain with history of Pneumothorax TECHNIQUE: Contiguous axial scanning of the chest without IV contrast. Coronal and sagittal reconstru ctions performed. CT DLP: 282.9 mGycm Automated exposure control for dose reduction was used. FINDINGS: Heart is normal size without pericardial effusion. Aorta normal caliber with conventional arch was a branching anatomy. No thoracic lymphadenopathy by CT size criteria allowing for noncontrast technique. Small calcified s ubcarinal lymph and right hilar lymph nodes compatible with prior granulomatous disease. Additional calcified granuloma posterior right base. There is moderate centrilobular emphysema, fairly extensive in the upper lungs where bullous emphysem a is also present at the left apex. Bullae measure up to 7.3 cm, axial image 12. No discrete pneumoth orax. Prominent dependent atelectasis posterior mid and lower lungs. 4 mm subpleural pulmonary nodule peripheral left lower lobe, axial image 42. This can be reassessed i n 6-12 months. 4 mm pulmonary nodule left mid lung along the major fissure likely subpleural lymph node can also be reassessed at follow-up. No consolidation or pleural effusion. Tiny hiatal hernia. Visualized upper abdomen otherwise shows no gross abnormality. Bones: No osseous destructive process. Minimal superior endplate deformity of T5 and chronic given th e lack of any surrounding soft tissue swelling. IMPRESSION: 1. COPD WITH MODERATE EMPHYSEMA, ADVANCED FOR THE PATIENT'S AGE. 2. MORE ADVANCED EMPHYSEMATOUS CHANGES IN THE UPPER LUNGS WITH BULLOUS CHANGE AT THE LEFT APEX. BULLA MEASURE UP TO 7.3 CM. NO DISCRETE PNEUMOTHORAX. 3. ADDITIONAL PRIOR GRANULOMATOUS DISEASE. 4. A COUPLE 4 MM PULMONARY NODULES ON THE LEFT. 6-[address] MON[address] FOLLOW-UP CT RECOMMENDED TO REASSESS.
[2019-07-20] MEDS ORDERED: KETOROLAC 30 MG/ML 1 ML VIAL IM STA (15:41)
[2019-07-20] MEDS ORDERED: KETOROLAC 30 MG/ML 1 ML VIAL IVP STA (15:45)
[2019-07-20 16:00] LABS: Basophils # (A) 0.1 k/uL (0-0.2); Basophils % (A) 1 %; Eosinophils # (A) 0.1 k/uL (0-0.7); Eosinophils % (A) 1 %; HCT 41.7 % (39.0-53.0); Lymphocytes # (A) 2.7 k/uL (1.0-4.8); Lymphocytes % (A) 35 %; MCH 30.7 pg (25.0-35.0); MCHC 33.6 g/dL (31.0-37.0); MCV 91.3 fL (80.0-100.0); Mean Platelet Volume 6.6; Monocytes # (A) 0.5 k/uL (0-1.0); Monocytes % (A) 7 %; Neutrophils # (A) 4.2 k/uL (1.3-7.7); Neutrophils % (A) 54 %; Platelet Count 393 k/uL (150-450); RBC 4.57 m/uL (4.30-5.90); RDW 13.1 % (11.5-15.5); WBC 7.8 k/uL (3.8-10.6)
[2019-07-20 16:11] LABS: ALT 29 U/L (4-49); AST 23 U/L (17-59); African American GFR (CKD) >90 (>60 ml/min/1.73 sqM); Albumin 4.1 g/dL (3.5-5.0); Alkaline Phosphatase 56 U/L (38-126); Anion Gap 6 mmol/L; Blood Urea Nitrogen 14 mg/dL (9-20); Carbon Dioxide 25 mmol/L (22-30); Chloride 108 mmol/L (98-107); Glucose 95 mg/dL (74-99); Magnesium 2.2 mg/dL (1.6-2.3); Non-African American GFR(CKD) >90 (>60 ml/min/1.73 sqM); Potassium 4.2 mmol/L (3.5-5.1); Sodium 139 mmol/L (137-145); Total Bilirubin 0.4 mg/dL (0.2-1.3); Total Protein 6.7 g/dL (6.3-8.2)
[2019-07-20 16:16] LABS: D-Dimer 0.28 mg/L FEU (<0.60); INR 0.9 (<1.2); Partial Thromboplastin Time 24.2 sec (22.0-30.0); Prothrombin Time 9.6 sec (9.0-12.0)
[2019-07-20 17:38] VITALS: BP 116/69; PULSE 78; RESP 18; TEMP 98.4
== END 2019-07-20 17:30 | disposition home or self-care (01) ==
LOC: EC 13:35
DX: R09.1 Pleurisy (principal); R06.02 Shortness of breath; R07.9 Chest pain, unspecified; F17.200 Nicotine dependence, unspecified, uncomplicated
CPT/HCPCS: 36415; 93005; 85379; 80053; 83735; 84484; 85025; 85610; 85730; 71046; 71250; 99285; 96374; J1885

== ENCOUNTER 2020-02-16 08:29 | Emergency (ER) | payer OTHER ==
[2020-02-16 08:38] VITALS: RESP 18
[2020-02-16] MEDS ORDERED: HYDROcodone/APAP 7.5-325MG 1 EACH TAB PO ONE (08:50)
[2020-02-16] MEDS ORDERED: IBUPROFEN 600 MG TAB PO STA (08:50)
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
--- NOTE | 2020-02-16 09:16 | XR ---
EXAMINATION TYPE: XR shoulder complete RT DATE OF EXAM: 02/16/2020 CLINICAL HISTORY: Chronic pain. TECHNIQUE: Three views of the right shoulder are obtained. COMPARISON: None. FINDINGS: There is no acute fracture/dislocation evident in the right shoulder. [id number] katerine rowing at acromioclavicular joint without significant spurring. Distal acromion morphology unremarkab le. Glenohumeral joint maintained. The visualized ribs are intact and unremarkable. IMPRESSION: As above
--- NOTE | 2020-02-16 09:17 | XR ---
EXAMINATION TYPE: XR cervical spine comp DATE OF EXAM: 02/16/2020 TECHNIQUE: Frontal, lateral, oblique, swimmers, and open mouth view of the cervical spine are obtaine d. HISTORY: Right arm pain, radicular symptoms COMPARISON: CT cervical spine January 15, 2018 FINDINGS: The cervical spine is visualized in its entirety from C1 thru the top of T1 level, there i s persistent levoconvex scoliosis centered upper thoracic spine without evidence of acute fracture or dislocation. The pre-vertebral soft tissue appears within normal limits. The C1-C2 articulation is within normal limits on the open mouth view. Vertebral body heights are maintained. Stable mild dis c space narrowing C6-C7 level The oblique images are within normal limits. Overlying soft tissue is u nremarkable. IMPRESSION: As above.
[2020-02-16] MEDS ORDERED: ACET/COD 300 MG/30 MG STARTER PACK 6 TAB BTL PO STA (09:41)
[2020-02-16 09:51] VITALS: BP 109/68; PULSE 70; TEMP 97.6
== END 2020-02-16 09:51 | disposition home or self-care (01) ==
LOC: EC 08:29
DX: G56.01 Carpal tunnel syndrome, right upper limb (principal); M25.511 Pain in right shoulder; M54.12 Radiculopathy, cervical region; F17.200 Nicotine dependence, unspecified, uncomplicated
CPT/HCPCS: 72050; 99283

== ENCOUNTER 2020-10-09 08:28 | Observation (INO) | payer OTHER ==
[2020-10-09 08:33] VITALS: RESP 18
[2020-10-09] MEDS ORDERED: KETOROLAC 15 MG/ML 1 ML VIAL IVP STA (09:06)
[2020-10-09] MEDS ORDERED: MORPHINE SULFATE 4 MG/ML SYRINGE IVP STA (09:06)
[2020-10-09 09:26] LABS: MCV 96.5 fL (80.0-100.0); RBC 5.18 m/uL (4.30-5.90); WBC 8.9 k/uL (3.8-10.6)
[2020-10-09 09:27] LABS: Basophils # (A) 0.1 k/uL (0-0.2); Basophils % (A) 1 %; Eosinophils # (A) 0.3 k/uL (0-0.7); Eosinophils % (A) 3 %; Lymphocytes # (A) 1.9 k/uL (1.0-4.8); Lymphocytes % (A) 21 %; MCH 32.9 pg (25.0-35.0); MCHC 34.1 g/dL (31.0-37.0); Mean Platelet Volume 6.8; Monocytes # (A) 0.7 k/uL (0-1.0); Monocytes % (A) 7 %; Neutrophils # (A) 5.9 k/uL (1.3-7.7); Neutrophils % (A) 67 %; Platelet Count 381 k/uL (150-450); RDW 12.1 % (11.5-15.5)
--- NOTE | 2020-10-09 10:00 | ED ---
Extremity Problem HPI - General Chief complaint: Extremity Problem,Nontraumatic Stated complaint: post op-arm pain & swelling Time Seen by Provider: 10/09/20 08:48 Source: patient Mode of arrival: ambulatory Limitations: no limitations - History of Present Illness Initial comments: Patient is a 45-year-old male presenting to the emergency Department with complaints of swelling to his right arm that started a couple days ago. Patient is status post 5 days postop right labral repair at [facility]. Patient states his shoulder has been feeling pretty well however from his armpit down the rest of his arm he is complaining of discomfort, achiness and now swelling. He has had no falls or trauma, is been wearing his sling as recommended. He s tates he did call his surgeon's office who recommended coming into the ER for evaluation. Patient has no history of blood clots. He's had no fevers or chills. He's been alternating between ibuprofen and [place] for pain control. Any chest pain or short of breath, no cough, no abdominal pain, no nausea or vomiting. He has no further complaints at this time. His vital signs are stable upon arrival. - Related Data Home Medications Medication Instructions Recorded Confirmed HYDROcodone/APAP 5-325MG [[place] 1 tab PO Q6H PRN 10/09/20 10/09/20 5-325] Ibuprofen [Motrin] 800 mg PO Q6H PRN 10/09/20 10/09/20 Venlafaxine HCl ER [Effexor Xr] 37.5 mg PO DAILY 10/09/20 10/09/20 Previous Rx's Medication Instructions Recorded Cyclobenzaprine [Flexeril] 10 mg PO TID PRN #15 tab 02/16/20 Allergies Allergy/AdvReac Type Severity Reaction Status Date / Time No Known Allergies Allergy Verified 10/09/20 10:34 Review of Systems ROS Statement: Those systems with pertinent positive or pertinent negative responses have been documented in the HPI. ROS Other: All systems not noted in ROS Statement are negative. Past Medical History Past Medical History: Pneumonia Additional Past Medical History / Comment(s): kidney stones History of Any Multi-Drug Resistant Organisms: None Reported Past Surgical History: Orthopedic Surgery Additional Past Surgical History / Comment(s): R thumb Past Psychological History: Anxiety, Bipolar, Depression Smoking Status: Current every day smoker Past Alcohol Use History: Rare Past Drug Use History: Marijuana General Exam - General Exam Comments Initial Comments: GENERAL: Patient is well-developed and well-nourished. Patient is nontoxic and in no acute distress. HEAD: Atraumatic, normocephalic. EYES: Pupils equal round and reactive to light, extraocular movements intact, sclera anicteric, conjunctiva are normal. Eyelids were unremarkable. ENT: TMs normal, nares patent, oropharynx clear without exudates. Moist mucous membranes. NECK: Normal range of motion, supple without lymphadenopathy or JVD. LUNGS: Unlabored respirations. Breath sounds clear to auscultation bilaterally and equal. No wheezes rales or rhonchi. HEART: Regular rate and rhythm without murmurs, rubs or gallops. ABDOMEN: Soft, nontender, normoactive bowel sounds. No guarding, no rebound. No masses appreciated. : Deferred MUSCULOSKELETAL: Patient has mild to moderate swelling from his right mid upper arm through his right elbow down to his right forearm. He has tenderness along this entire area. He is neurovascular intact, his gross strength is slightly decreased however he is only 5 days post op right labral repair. He has no erythema of his incisions, they looked clean and dry, no obvious signs of infection. No clubbing or cyanosis. NEUROLOGICAL: Patient is alert and oriented x 3. Motor and sensory are also intact. Cranial nerves II through XII grossly intact. Symmetrical smile. Normal speech, normal gait. PSYCH: Normal mood, normal affect. SKIN: Warm, Dry, normal turgor, no rashes. Recent surgical incisions look clean, dry and intact, no signs of infection. No drainage. Limitations: no limitations Course Vital Signs 10/09/20 10/09/20 08:29 09:16 Temperature 98.0 F Pulse Rate 66 Respiratory 18 Rate Blood Pressure 115/80 O2 Sat by Pulse 95 Oximetry Medical Decision Making - Medical Decision Making Patient is a 44-year-old male here for right upper extremity swelling over the past 2 days. He is 5 days postop right labrum repair at [facility]. Ultrasound reveals a DVT starting in the right axilla vein to brachial vein, thrombus also on the right basilic vein. Case discussed with Dr. Herrera who accepts admission, high-dose heparin initiated. We will put vascular on consult. Patient is in agreement with this plan of care. Case discussed with Dr. Johnson. - Lab Data Result diagrams: 10/09/20 09:16 10/09/20 10:01 Lab Results 10/09/20 10/09/20 Range/Units 09:16 10:01 WBC 8.9 (3.8-10.6) k/uL RBC 5.18 (4.30-5.90) m/uL Hgb 17.0 (13.0-17.5) gm/dL Hct 50.0 (39.0-53.0) % MCV 96.5 (80.0-100.0) fL MCH 32.9 (25.0-35.0) pg MCHC 34.1 (31.0-37.0) g/dL RDW 12.1 (11.5-15.5) % Plt Count 381 (150-450) k/uL MPV 6.8 Neutrophils % 67 % Lymphocytes % 21 % Monocytes % 7 % Eosinophils % 3 % Basophils % 1 % Neutrophils # 5.9 (1.3-7.7) k/uL Lymphocytes # 1.9 (1.0-4.8) k/uL Monocytes # 0.7 (0-1.0) k/uL Eosinophils # 0.3 (0-0.7) k/uL Basophils # 0.1 (0-0.2) k/uL Sodium 140 (137-145) mmol/L Potassium 5.0 (3.5-5.1) mmol/L Chloride 104 (98-107) mmol/L Carbon Dioxide 28 (22-30) mmol/L Anion Gap 8 mmol/L BUN 11 (9-20) mg/dL Creatinine 0.79 (0.66-1.25) mg/dL Est GFR (CKD-EPI)AfAm >90 (>60 ml/min/1.73 sqM) Est GFR (CKD-EPI)NonAf >90 (>60 ml/min/1.73 sqM) Glucose 87 (74-99) mg/dL Calcium 9.8 (8.4-10.2) mg/dL Total Bilirubin 0.7 (0.2-1.3) mg/dL AST 30 (17-59) U/L ALT 42 (4-49) U/L Alkaline Phosphatase 75 (38-126) U/L Total Protein 7.1 (6.3-8.2) g/dL Albumin 4.3 (3.5-5.0) g/dL Critical Care Time Critical Care Time: Yes Total Critical Care Time: 35 (Acute DVT of the right upper extremity, patient started on high-dose heparin, admitted to hospital.) Disposition Clinical Impression: Deep vein thrombosis (DVT) of right upper extremity Disposition: ADMITTED IP TO THIS [facility] Condition: Stable [facility] [Primary Care Provider] - 1-2 days Decision Date: 10/09/20 Decision Time: 10:57
--- NOTE | 2020-10-09 10:05 | US ---
EXAMINATION TYPE: US venous doppler duplex UE RT DATE OF EXAM: 10/09/2020 COMPARISON: NONE CLINICAL HISTORY: pain, swelling, recent surgery. SIDE PERFORMED: Right Arm: Positive for DVT DVT starting in right axilla vein extending to brachial vein. Thrombus also in right basilic vein. IMPRESSION: Deep vein thrombosis of the right upper extremity, as described. Ordering clinician was notified via telephone by Dr. Watts at 10:02 AM on 10/09/2020.
[2020-10-09 10:41] LABS: ALT 42 U/L (4-49); AST 30 U/L (17-59); African American GFR (CKD) >90 (>60 ml/min/1.73 sqM); Albumin 4.3 g/dL (3.5-5.0); Alkaline Phosphatase 75 U/L (38-126); Anion Gap 8 mmol/L; Blood Urea Nitrogen 11 mg/dL (9-20); Calcium 9.8 mg/dL (8.4-10.2); Carbon Dioxide 28 mmol/L (22-30); Chloride 104 mmol/L (98-107); Glucose 87 mg/dL (74-99); Non-African American GFR(CKD) >90 (>60 ml/min/1.73 sqM); Sodium 140 mmol/L (137-145); Total Bilirubin 0.7 mg/dL (0.2-1.3); Total Protein 7.1 g/dL (6.3-8.2)
[2020-10-09] MEDS ORDERED: HEPARIN SODIUM 1,000 UN/ML (10ML VL) IV ONE (10:53)
[2020-10-09] MEDS ORDERED: HEPARIN SODIUM 1,000 UN/ML (10ML VL) IV PRN (10:53)
[2020-10-09] MEDS ORDERED: NALOXONE 0.4 MG/ML 1 ML VIAL IV PRN (10:54)
[2020-10-09] MEDS ORDERED: IBUPROFEN 400 MG TAB PO PRN (10:54)
--- NOTE | 2020-10-09 12:37 | P.GSCN ---
History of Present Illness Consult date: 10/09/20 Reason for Consult: Right upper extremity DVT Requesting physician: Scarlett Olivas History of present illness: This is a pleasant 45 or old female patient who presented to the emergency department with complaints of right upper extremity pain and swelling. The patient is a current every day smoker, he is status post op day 5 or right labral repair at [facility]. He states his whole postop instructions including keeping his arm in a sling and non-mobile. Has no prior history of clotting disorders or blood clots. He states he's actually had right upper extremity pain and swelling for months however 2 days ago he started having increased pain and swelling she was concerned for and came to the emergency department. He states he is able to move his fingers, has pain in his entire arm, denies any shortness of breath, chest pain, abdominal pain, nausea or vomiting. He has been afebrile. Right upper extremity venous Doppler positive for deep vein thrombosis in the right axillary vein extending to the brachial vein. Thrombus also in right basilic vein. Review of Systems A 14 point review of systems was completed all pertinent positives and negatives as stated in the HPI Past Medical History Past Medical History: Pneumonia Additional Past Medical History / Comment(s): kidney stones History of Any Multi-Drug Resistant Organisms: None Reported Past Surgical History: Orthopedic Surgery Additional Past Surgical History / Comment(s): R thumb Past Psychological History: Anxiety, Bipolar, Depression Smoking Status: Current every day smoker Past Alcohol Use History: Rare Past Drug Use History: Marijuana Medications and Allergies Home Medications Medication Instructions Recorded Confirmed Type Cyclobenzaprine [Flexeril] 10 mg PO TID PRN #15 tab 02/16/20 10/09/20 Rx HYDROcodone/APAP 5-325MG [[place] 1 tab PO Q6H PRN 10/09/20 10/09/20 History 5-325] Ibuprofen [Motrin] 800 mg PO Q6H PRN 10/09/20 10/09/20 History Venlafaxine HCl ER [Effexor Xr] 37.5 mg PO DAILY 10/09/20 10/09/20 History Allergies Allergy/AdvReac Type Severity Reaction Status Date / Time No Known Allergies Allergy Verified 10/09/20 10:34 Surgical - Exam Vital Signs Temp Pulse Resp Pulse Ox 98.0 F 66 18 95 10/09/20 08:29 10/09/20 08:29 10/09/20 08:29 10/09/20 08:29 General appearance: The patient is alert, oriented, Right upper extremity venous Doppler positive for deep vein thrombosis in the right axillary vein extending to the brachial vein. Thrombus also in right basilic vein.in no acute distress. HET: Head is normocephalic and atraumatic. Neck: Supple without lymphadenopathy. Trachea midline. Heart: S1 S2. Regular rate and rhythm. Lungs: Clear to auscultation. Abdomen: Soft, nontender, nondistended. Extremities: Normal skin color and turgor. Bilateral palpable radial and ulnar pulses right upper extremity with swelling from shoulder to elbow. Patient has bilateral palpable pedal pulses no pedal edema. Neurological: No focal deficits. Strength and sensation are grossly intact. Results - Labs 10/09/20 09:16 10/09/20 10:01 Diabetes panel 10/09/20 Range/Units 10:01 Sodium 140 (137-145) mmol/L Potassium 5.0 (3.5-5.1) mmol/L Chloride 104 (98-107) mmol/L Carbon Dioxide 28 (22-30) mmol/L BUN 11 (9-20) mg/dL Creatinine 0.79 (0.66-1.25) mg/dL Glucose 87 (74-99) mg/dL Calcium 9.8 (8.4-10.2) mg/dL AST 30 (17-59) U/L ALT 42 (4-49) U/L Alkaline Phosphatase 75 (38-126) U/L Total Protein 7.1 (6.3-8.2) g/dL Albumin 4.3 (3.5-5.0) g/dL Calcium panel 10/09/20 Range/Units 10:01 Calcium 9.8 (8.4-10.2) mg/dL Albumin 4.3 (3.5-5.0) g/dL Pituitary panel 10/09/20 Range/Units 10:01 Sodium 140 (137-145) mmol/L Potassium 5.0 (3.5-5.1) mmol/L Chloride 104 (98-107) mmol/L Carbon Dioxide 28 (22-30) mmol/L BUN 11 (9-20) mg/dL Creatinine 0.79 (0.66-1.25) mg/dL Glucose 87 (74-99) mg/dL Calcium 9.8 (8.4-10.2) mg/dL Adrenal panel 10/09/20 Range/Units 10:01 Sodium 140 (137-145) mmol/L Potassium 5.0 (3.5-5.1) mmol/L Chloride 104 (98-107) mmol/L Carbon Dioxide 28 (22-30) mmol/L BUN 11 (9-20) mg/dL Creatinine 0.79 (0.66-1.25) mg/dL Glucose 87 (74-99) mg/dL Calcium 9.8 (8.4-10.2) mg/dL Total Bilirubin 0.7 (0.2-1.3) mg/dL AST 30 (17-59) U/L ALT 42 (4-49) U/L Alkaline Phosphatase 75 (38-126) U/L Total Protein 7.1 (6.3-8.2) g/dL Albumin 4.3 (3.5-5.0) g/dL - Imaging Comments: Right upper extremity venous Doppler positive for deep vein thrombosis in the right axillary vein extending to the brachial vein. Thrombus also in right basilic vein. Assessment and Plan Assessment: 1. Right upper extremity DVT 2. Postop day #5 for right labral repair at [facility] 3. Current smoker Plan: 1. Agree with initiation of heparin drip 2. Venous Doppler ultrasound reviewed 3. There is no indication for any vascular surgical intervention at this time 4. Recommend transitioning to oral anticoagulation in the next 24-48 hours 5. Smoking cessation Thank you for this consultation, we will continue to follow The impression and plan of care has been dictated as directed. I performed a history and examination of this patient, discussed the same with the dictator. I agree with the dictator's note ,documented as a scribe. Any ad ditional findings or plans will be noted.
[2020-10-09] MEDS: HEPARIN SOD,PORK IN 0.45% NACL 25,000 UNIT in 0.45% NACL 1 250ML.BAG IV SCH ×2 (12:39→20:35)
[2020-10-09] MEDS: HYDROcodone/APAP 5-325MG 1 EACH TAB PO PRN ×2 (12:41→17:04)
--- NOTE | 2020-10-09 18:51 | P.HPIM ---
History of Present Illness H&P Date: 10/09/20 Chief Complaint: Right upper extremity swelling and pain status post right scope arthroscopy This is a 45-[facility], who has underlying history of COPD, pneumothorax, status post thoracostomy tube, in the past currently a smoker, who underwent a right total shoulder scope at [facility], Dr. Osvaldo Ralph 5 days ago. Patient was thereafter placed on a sling, seen in the emergency room secondary to right axillary pain, however the axillae pain was even prior to his surgery, and was found to have a right axillary DVT extending with thrombosis of the brachial vein and right basilic vein. This would be his first episode of any clotting disorder, denies any trauma, patient has been off for the past 9 months secondary to right shoulder problems. Patient denies any IV drug use, no new tattoos Review of Systems Constitutional: Reports as per HPI, Reports anorexia, Denies chills, Denies chronic headaches, Denies chronic pain, Denies daytime sleepiness, Denies fatigue, Denies fever, Denies lethargy, Denies malaise, Denies night sweats, Denies poor appetite, Denies sweats, Denies weakness, Denies weight gain, Denies weight loss Ears, nose, mouth and throat: Reports as per HPI, Denies ant. neck pain, Denies bleeding gums, Denies dental pain, Denies dysphagia, Denies epistaxis, Denies headache, Denies hoarseness, Denies mouth pain, Denies nasal congestion, Denies nasal discharge, Denies neck fullness/pressure, Denies neck lump, Denies nose pain, Denies odynophagia, Denies post-nasal drip, Denies sinus pain, Denies sinus pressure, Denies swelling in mouth, Denies swelling in throat, Denies sore throat, Denies vertigo, Denies voice changes Cardiovascular: Reports as per HPI, Denies chest pain, Denies claudication, Denies decreased exercise tolerance, Denies dyspnea on exertion, Denies edema, Denies high blood pressure, Denies irregular heart beat, Denies leg edema, Denies lightheadedness, Denies orthopnea, Denies palpitations, Denies paroxysmal nocturnal dyspnea, Denies phlebitis, Denies rapid heart beat, Denies shortness of breath, Denies syncope Respiratory: Reports as per HPI Gastrointestinal: Reports as per HPI Genitourinary: Reports as per HPI Musculoskeletal: Reports as per HPI, Reports shooting arm pain Integumentary: Reports as per HPI Neurological: Reports as per HPI Psychiatric: Reports as per HPI, Denies anhedonia, Denies anxiety, Denies anxiety attacks, Denies change in appetite, Denies change in libido, Denies change in sleep habits, Denies confusion, Denies depression, Denies difficulty concentrating, Denies disorientation, Denies hallucinations, Denies hopelessness, Denies hypersomnia, Denies insomnia, Denies irritability, Denies memory loss, Denies mood swings, Denies paranoia, Denies sadness/tearfulness, Denies sleep disturbances, Denies suicidal ideation Endocrine: Reports as per HPI, Denies cold intolerance, Denies deepening of the voice, Denies excessive sweating, Denies excessive thirst, Denies fatigue, Denies flushing, Denies heat intolerance, Denies high blood sugars, Denies increase in ring/shoe/hat size, Denies low blood sugars, Denies nocturia, Denies palpitations, Denies polydipsia, Denies polyphagia, Denies polyuria, Denies proptosis, Denies recent glucocorticoid use, Denies thyroid mass, Denies weight change Hematologic/Lymphatic: Reports as per HPI Allergic/Immunologic: Reports as per HPI, Denies allergic rhinitis, Denies anaphylaxis, Denies angioedema, Denies gluten intolerance, Denies persistent infections, Denies seasonal allergies, Denies urticaria, Denies wheezing Past Medical History Past Medical History: Osteoarthritis (OA), Pneumonia Additional Past Medical History / Comment(s): kidney stones pneumothorax History of Any Multi-Drug Resistant Organisms: None Reported Past Surgical History: Orthopedic Surgery Additional Past Surgical History / Comment(s): R thumb Past Psychological History: Anxiety, Bipolar, Depression Smoking Status: Current every day smoker Past Alcohol Use History: Rare Past Drug Use History: Marijuana Medications and Allergies Home Medications Medication Instructions Recorded Confirmed Type Cyclobenzaprine [Flexeril] 10 mg PO TID PRN #15 tab 02/16/20 10/09/20 Rx HYDROcodone/APAP 5-325MG [[place] 1 tab PO Q6H PRN 10/09/20 10/09/20 History 5-325] Ibuprofen [Motrin] 800 mg PO Q6H PRN 10/09/20 10/09/20 History Venlafaxine HCl ER [Effexor Xr] 37.5 mg PO DAILY 10/09/20 10/09/20 History Allergies Allergy/AdvReac Type Severity Reaction Status Date / Time No Known Allergies Allergy Verified 10/09/20 10:34 Physical Exam Vitals: Vital Signs Temp Pulse Resp BP Pulse Ox 10/09/20 09:16 115/80 10/09/20 08:29 98.0 F 66 18 95 Intake and Output 10/08/20 10/09/20 10/09/20 22:59 06:59 14:59 Other: Weight 63.503 kg Results CBC & Chem 7: 10/09/20 09:16 10/09/20 10:01 Thrombosis Risk Factor Assmnt - DVT/VTE Prophylaxis DVT/VTE Prophylaxis: Pharmacologic Prophylaxis ordered Assessment and Plan Plan: 1. Right upper extremity DVT involving the right axillary vein, extending to t he brachial vein,, also included is the right basilic vein with thrombosis. Patient has had symptoms at least 2 months prior to the current surgery, status post right shoulder arthroscopy, for labral tear. Patient is on IV heparin, consult with vascular surgeon to see this is acute or subacute, patient's on IV heparin, transitioned to oral factor X a inhibition [place] in the next 24 hours, 2. Status post right shoulder arthroscopy for labral tear, [facility], follows with Dr. Osvaldo Ralph, no rotator cuff pain this time, sing can be discontinued, and can be used only when necessary for discomfort 3. COPD without any exacerbation 4. History of pneumothorax, thoracostomy tube placement past 5. Tobacco use, patient has no plans of discontinuing tobacco this time, can u se nicotine when necessary while in the hospital
[2020-10-09] MEDS: HYDROcodone/APAP 7.5-325MG 1 EACH TAB PO PRN (21:56)
[2020-10-09] MEDS: ALPRAZolam 0.25 MG TAB PO PRN (22:31)
[2020-10-09] MEDS ORDERED: CYCLOBENZAPRINE 10 MG TAB PO PRN (23:45)
[2020-10-09] MEDS ORDERED: IBUPROFEN 800 MG TAB PO PRN (23:45)
[2020-10-10 02:42] LABS: Basophils # (A) 0.1 k/uL (0-0.2); Basophils % (A) 1 %; Eosinophils # (A) 0.4 k/uL (0-0.7); Eosinophils % (A) 4 %; HCT 42.6 % (39.0-53.0); HGB 14.2 gm/dL (13.0-17.5); Lymphocytes # (A) 3.4 k/uL (1.0-4.8); Lymphocytes % (A) 41 %; MCHC 33.4 g/dL (31.0-37.0); MCV 95.7 fL (80.0-100.0); Mean Platelet Volume 6.8; Monocytes # (A) 0.6 k/uL (0-1.0); Monocytes % (A) 7 %; Neutrophils # (A) 3.8 k/uL (1.3-7.7); Neutrophils % (A) 46 %; Platelet Count 384 k/uL (150-450); RBC 4.45 m/uL (4.30-5.90); RDW 12.6 % (11.5-15.5); WBC 8.4 k/uL (3.8-10.6)
[2020-10-10] MEDS: HYDROcodone/APAP 7.5-325MG 1 EACH TAB PO PRN ×2 (04:04→09:48)
[2020-10-10 05:13] VITALS: BP 135/81; PULSE 64; TEMP 97.7
[2020-10-10] MEDS: ALPRAZolam 0.25 MG TAB PO PRN (08:07)
[2020-10-10] MEDS ORDERED: VENLAFAXINE HCL ER 37.5 MG CAP PO SCH (09:00)
--- NOTE | 2020-10-10 09:09 | P.DS ---
Providers Date of admission: 10/09/20 11:16 Expected date of discharge: 10/10/20 Attending physician: Kathryn Herrera Consults: 10/09/20 10:55 Consult Physician Urgent Consulting Provider: Danii Prado Consult Reason/Comments: DVT right upper extremity Do you want consulting provider notified?: Yes Primary care physician: [facility] Course: HISTORY OF PRESENT ILLNESS This is a 45-year-old gentleman patient of [facility], who has underlying history of COPD, pneumothorax, status post thoracostomy tube, in the past cu rrently a smoker, who underwent a right total shoulder scope at [facility], Dr. Osvaldo Ralph 5 days ago. Patient was thereafter placed on a sling, seen in the emergency room secondary to right axillary pain, however the axillae pain was even prior to his surgery, and was found to have a right axillary DVT extending with thrombosis of the brachial vein and right basilic vein. This would be his first episode of any clotting disorder, denies any trauma, patient has been off for the past 9 months secondary to right shoulder problems. Patient denies any IV drug use, no new tattoos 10/10: Patient has been seen by vascular surgery with recommendations to transition to oral anticoagulation, smoking cessation., No plan for surgical intervention. Repeat CBC is unremarkable. She is currently on heparin drip and will be transitioned to eliquis. Vascular surgery is sent prescription for [place] to pharmacy. The patient will be discharged home today in stable condition. DISCHARGE DIAGNOSES: 1. Right upper extremity DVT involving the right axillary vein, extending to the brachial vein, also included is the right basilic vein with thrombosis. 2. Status post right shoulder arthroscopy for labral tear, [facility], follows with Dr. Osvaldo Ralph, no rotator cuff pain this time 3. COPD without exacerbation 4. History of pneumothorax, thoracostomy tube placement past 5. Tobacco use, patient has no plans of discontinuing tobacco this time DISCHARGE PLAN Home Impression and plan of care have been directed as dictated by the signing physician. Enma Barton nurse practitioner acting as scribe for signing physician. Patient Condition at Discharge: Good Plan - Discharge Summary New Discharge Prescriptions: New Apixaban [Eliquis Starter Pack (for VTE)] 0 mg PO DIRECTED 30 Days #1 pack Continue Cyclobenzaprine [Flexeril] 10 mg PO TID PRN #15 tab PRN Reason: Muscle Spasm Venlafaxine HCl ER [Effexor XR] 37.5 mg PO DAILY HYDROcodone/APAP 5-325MG [[place] 5-325] 1 tab PO Q6H PRN PRN Reason: Pain Discontinued Ibuprofen [Motrin] 800 mg PO Q6H PRN PRN Reason: Pain Discharge Medication List Cyclobenzaprine [Flexeril] 10 mg PO TID PRN #15 tab 02/16/20 [Rx] HYDROcodone/APAP 5-325MG [[place] 5-325] 1 tab PO Q6H PRN 10/09/20 [History] Venlafaxine HCl ER [Effexor XR] 37.5 mg PO DAILY 10/09/20 [History] Apixaban [Eliquis Starter Pack (for VTE)] 0 mg PO DIRECTED 30 Days #1 pack 10/10/20 [Rx] Follow up Appointment(s)/Referral(s): Danii Prado DO [STAFF PHYSICIAN] - 10/17/20 11:45 am (come 1/2 hour early to fill out paper work.) Osvaldo Ralph DO [REFERRING] - 10/18/20 1:30 pm (Orthopedic Surgeon as previously scheduled.) [facility] [place] [Primary Care Provider] - 10/12/20 10:30 am ( patient to make own appt.) Patient Instructions/Handouts: Apixaban (By mouth), How to Stop Smoking (DC), Deep Vein Thrombosis (DC), Fall Prevention (DC) Discharge Disposition: HOME SELF-CARE
[2020-10-10] MEDS ORDERED: APIXABAN 5 MG TAB PO SCH (09:15)
--- NOTE | 2020-10-10 11:16 | P.PN ---
Subjective Progress Note Date: 10/10/20 Principal diagnosis: Right upper extremity DVT Patient is seen and examined sitting up in his bed. States he still having pain in his right upper extremity from his shoulder to home past his elbow. He is able to move his hand and fingers without any difficulty. He has been afebrile, denies any shortness of breath or chest pain. He has remained on heparin drip. Will plan to transition to Eliquis if covered. Objective - Vital Signs Vital signs: Vital Signs Temp 97.7 F 10/10/20 04:45 Pulse 64 10/10/20 04:45 Resp 18 10/10/20 04:45 BP 135/81 10/10/20 04:45 Pulse Ox 97 10/10/20 04:45 Intake & Output 10/09/20 10/10/20 10/10/20 18:59 06:59 18:59 Intake Total 190.686 Balance 190.686 Weight 63.503 kg Intake: Intake, IV Titration 90.686 Amount Heparin Sod,Pork in 0.45% 90.686 NaCl 25,000 unit In 0.45 % NaCl 1 250ml.bag @ 18 UNITS/KG/HR 11.431 mls/hr IV .[id number] [facility] Rx#: [id number] Blood Product 100 Other: Voiding Method Toilet # Voids 1 - Exam General appearance: The patient is alert, oriented, appears in no acute distress. HET: Head is normocephalic and atraumatic. Neck: Supple without lymphadenopathy. Trachea midline. Heart: S1 S2. Regular rate and rhythm. Lungs: Clear to auscultation. Extremities: Normal skin color and turgor. Right upper extremity with swelling in the axilla, just below the shoulder down to forearm just distally to the elbow, no redness or erythema. Patient is able to move his right upper extremity, wiggle his fingers. He has bilateral palpable +2 radial pulses. Neurological: No focal deficits. Alert and oriented 3. - Labs CBC & Chem 7: 10/10/20 02:14 10/09/20 10:01 Labs: Abnormal Lab Results - Last 24 Hours (Table) 10/09/20 10/10/20 Range/Units 18:31 02:14 APTT 41.1 H 60.9 H (22.0-30.0) sec Assessment and Plan Assessment: 1. Right upper extremity DVT 2. Postop day #5 for right labral repair at [facility] 3. Current smoker Plan: 1. Will transition to Eliquis if covered 2. Venous Doppler ultrasound reviewed 3. There is no indication for any vascular surgical intervention at this time 4. Smoking cessation Thank you for this consultation, we will continue to follow The impression and plan of care has been dictated as directed. Dr. Prado I performed a history and examination of this patient, discussed the same with the dictator. I agree with the dictator's note ,documented as a scribe. Any additional findings or plans will be noted.
== END 2020-10-10 11:05 | disposition home or self-care (01) ==
LOC: EC 08:28 → 5NMEDONC 11:16
PROVIDERS: ADMIT Family Medicine; ATTEND Family Medicine
DX: I82.A11 Acute embolism and thrombosis of right axillary vein (principal); I82.621 Acute embolism and thrombosis of deep veins of right upper extremity; F31.9 Bipolar disorder, unspecified; F41.9 Anxiety disorder, unspecified; F17.200 Nicotine dependence, unspecified, uncomplicated; J44.9 Chronic obstructive pulmonary disease, unspecified; M19.90 Unspecified osteoarthritis, unspecified site; Z20.822 Contact with and (suspected) exposure to COVID-19; Z79.899 Other long term (current) drug therapy; Z87.442 Personal history of urinary calculi; Z87.01 Personal history of pneumonia (recurrent); Z87.09 Personal history of other diseases of the respiratory system; Z98.890 Other specified postprocedural states
CPT/HCPCS: 96376 ×2; 96366 ×3; 96365; 96375; 99285; 36415; 80053; 85025 ×2; 85730 ×2; 87635; 93971; G0378 ×2; J2270; J1644 ×2; J1885